=== PATIENT | female | born 2000 | race Caucasian/White ===

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

== ENCOUNTER → 2023-05-13 | Outpatient (CLI) | payer BC ==
--- NOTE | 2023-05-14 08:49 | Diagnostic Imaging Report ---
INDICATION: Right axillary mass. Sonographic interrogation of the right axilla at the area of lump was performed. No discrete mass is identified. There is a small normal-sized lymph node in the right axilla measuring 7 x 3 x 6 mm. IMPRESSION: BI-RADS Category 1. No sonographic abnormality is detected. ACR BI-RADS Category 1: Negative. Result letter will be mailed to the patient. Note: At least 10% of breast cancer is not imaged by mammography. Dictated by: Dictated on workstation # [id number]
== END ==
LOC: RAD 10:52
PROVIDERS: ATTEND Family Medicine
DX: R59.0 Localized enlarged lymph nodes (principal); R59.1 Generalized enlarged lymph nodes; M25.671 Stiffness of right ankle, not elsewhere classified; F41.9 Anxiety disorder, unspecified; G40.909 Epilepsy, unspecified, not intractable, without status epilepticus; K21.9 Gastro-esophageal reflux disease without esophagitis